=== PATIENT | male | born 1925 | race Caucasian/White ===

== ENCOUNTER 2016-09-27 20:02 | Emergency (ER) | payer OTHER ==
[2016-09-27] MEDS ORDERED: ROCEPHIN IM ONE (21:23)
[2016-09-27] MEDS ORDERED: XYLOCAINE-MPF 1% INJ ONE (21:23)
--- NOTE | 2016-09-27 21:32 | PROVIDER DOCUMENTATION ---
HPI-Male Problem - General Chief Complaint: Urinary Retention Stated Complaint: PASSING BLOOD Time Seen by Provider: 09/27/16 21:22 Source: patient Allergies/Adverse Reactions: Patient Allergies Allergy/AdvReac Type Severity Reaction Status Date / Time Penicillins Allergy Severe Unknown Verified 09/27/16 22:20 morphine Allergy Mild NAUSEA/VOMI Verified 09/27/16 22:20 TING Home Medications: Home Medication List Medication Instructions Recorded Confirmed Last Taken Type Aspirin 81 mg PO DAILY 02/25/15 08/05/16 07/30/16 History 81 Clopidogrel Bisulfate [Plavix] 75 mg PO DAILY 02/25/15 08/05/16 07/30/16 History 75 Ezetimibe [Zetia] 10 mg PO DAILY 03/13/16 08/05/16 08/04/16 17:00 History 10 Levothyroxine [Synthroid] 75 microgm PO DAILY 03/13/16 08/05/16 08/04/16 17:00 History 75 Metoprolol Succinate [Toprol Xl] 100 mg PO DAILY 03/13/16 08/05/16 08/04/16 17: 00 History 100 Olopatadine 0.2% Oph Solution 1 drop BOTH EYES DAILY 03/13/16 08/05/16 08/01/16 History [Pataday 0.2% Oph Solution] 1 Sitagliptin Phos/Metformin HCl 1 each PO BID 03/13/16 08/05/16 08/04/16 17:00 History [Janumet 50-1,000 mg Tablet] 1 ROSUVAstatin [Crestor] 20 mg PO DAILY 06/29/16 08/05/16 08/04/16 17:00 History 20 Fosinopril Sodium 40 mg PO DAILY 07/09/16 08/05/16 08/04/16 17:00 History 40 Multivitamin [Tab-A-Daniel] 1 each PO DAILY 07/09/16 08/05/16 08/04/16 17:00 History 1 Ciprofloxacin HCl [Cipro] 500 mg PO BID #20 tablet 07/12/16 08/05/16 Unknown Rx Hydrocodone/Acetaminophen [[place] 1 - 2 each PO Q4-6H PRN PRN #30 08/05/16 Unknown Rx 7.5-325 Tablet] tablet Ciprofloxacin HCl [Cipro] 500 mg PO BID #10 tablet 09/27/16 Unknown Rx - History of Present Illness-Male Nature of Presenting Problem: Pt is a 89 yom who presents to ER [facility] CC of urinary retention. Pt reports that he has hx of hematuria, BPH, prostate cancer and reports that he was seen x3 days ago for a UTI by his urologist. Pt reports that today he has been unable to fully urinate and he feels as though his bladder is distended. On exam, his bladder is indeed distended and tender. Location of Complaint: reports: suprapubic Radiation: reports: none Quality of Pain: reports: fullness Severity in ED: reports: moderate Onset/Duration: reports: this morning Timing: reports: still present Urinary Symptoms: reports: dribbling, retention Associated Symptoms: denies: constipation, cough, diarrhea, fatigue, fever/ chills, muscle aches, nausea, syncope, vomiting, weakness, trouble walking Review of Systems - Adult - REVIEW OF SYSTEMS - ADULT Constitutional: denies: chills, fever, fatique, night sweats, weight gain, weight loss Eyes: reports: no symptoms reported Ears, Nose, Mouth & Throat: reports: no symptoms reported Cardiovascular: reports: no symptoms reported Respiratory: reports: no symptoms reported Gastrointestinal: denies: abdominal pain, hematemesis, constipation, diarrhea, difficulty swallowing, frequent heartburn, nausea, poor appetite, rectal bleeding, vomiting Genitourinary: reports: hematuria, urinary retention. denies: dysuria, discharge, frequency, flank pain, frequent UTI's, hesitency, incontinence, urgency Musculoskeletal: reports: no symptoms reported Integumentary: reports: no symptoms reported Neurological: reports: no symptoms reported Psychiatric: reports: no symptoms reported Endocrine: reports: no symptoms reported Hematologic/Lymphatic: reports: no symptoms reported Allergic/Immunologic: reports: no symptoms reported All Other Systems: Reviewed and Negative Past History - Adult - PAST MEDICAL HISTORY-ADULT Review of Records: reports: Nursing Assessment Review, Medications Reviewed Cardiovascular: reports: HTN, hyperlipidemia Genitourinary: reports: prostate cancer Neurological: reports: CVA - PRIOR SURGERIES/PROCEDURES Surgical/Procedure History: reports: cardiac stent, orthopedic (extremity), other (carotids; cataract sx bilateral eyes) - IMMUNIZATION STATUS Childhood Immunizations: See Nurse Assessment Flu Vaccine: See Nurse Assessment Physical Exam-General - PHYSICAL EXAM-ADULT Initial Vital Signs Reviewed: Yes - CONSTITUTIONAL General Appearance: appears well, alert, mild distress. negative: no apparent distress, slow to respond, obtunded, combative - NECK Neck: non-tender, full range of motion, supple. negative: C-spine tenderness, limited range of motion, lymphadenopathy - RESPIRATORY Respiratory: chest non-tender, lungs clear, normal breath sounds, no pleuratic chest pain, no respiratory distress, no accessory muscle use. negative: respiratory distress, decreased breath sounds, accessory muscle use, wheezing - CARDIOVASCULAR Cardiovascular: normal peripheral pulses, regular rate, rhythm. negative: bradycardia, tachycardia, irregularly irregular - GASTROINTESTINAL (ABDOMEN) Abdominal Exam: normal bowel sounds, soft, distended (urinary bladder distended) , tenderness (superpubic tender on palpation). negative: non tender, mass - MUSCULOSKELETAL Back Exam: no CVA tenderness, no vertebral tenderness. negative: CVA tenderness , decreased range of motion, muscle spasm, swelling, vertebral tenderness Extremity: normal range of motion, non-tender, normal gait - SKIN Integumentary: normal color, normal turgor, warm/dry. negative: abrasion(s), diaphoresis, erythema, laceration(s), tenderness, warm - NEUROLOGIC Neurologic: grossly normal, no motor/sensory deficits. negative: focal weakness , motor weakness, sensory deficit - PSYCHIATRIC Psych/Mental Status: normal mood/affect, normal thought content, normal thought process, oriented x 3 Progress - PLAN OF CARE/RESULTS Progress/Plan/Lab Results: Vital Signs - 24 hr 09/27/16 20:32 Temperature 98.1 F Pulse Rate 83 Respiratory 20 Rate Blood Pressure 148/83 O2 Sat by Pulse 98 Oximetry Orders Category Date Time Status Thayer Cath Insertion ORDERED Care 09/27/16 21:23 Active Nursing [[facility] [place]. NRSG Communication Order] DIRECTED Care 09/27/16 20:54 Active CBC WITH ELECTRONIC DIFF [HEME] Stat Lab 09/27/16 22:00 Completed COMPREHENSIVE METABOLIC PANEL [CHEM] Stat Lab 09/27/16 22:00 Completed URINE CULTURE [RM] Routine Lab 09/27/16 22:52 Received CefTRIAXONE [Rocephin] Med 09/27/16 21:23 Discontinued 1 gm IM NOW ONE Lidocaine 1% Pf [Xylocaine-Mpf 1%] Med 09/27/16 21:23 Discontinued 5 ml INJ NOW ONE Laboratory Tests 09/27/16 09/27/16 09/27/16 22:00 22:00 22:12 WBC 9.85 RBC 3.45 L Hgb 10.4 L Hct 32.7 L MCV 94.8 MCH 30.1 MCHC 31.8 L RDW Std Deviation 14.9 H Plt Count 244 MPV 10.7 H Immature Gran % (Auto) 0.4 Neut % (Auto) 64.9 Lymph % (Auto) 17.2 L [place] % (Auto) 16.2 H Eos % (Auto) 1.1 Baso % (Auto) 0.2 Immature Gran # (Auto) 0.04 Neut # (Auto) 6.39 Lymph # (Auto) 1.69 [place] # (Auto) 1.60 H Eos # (Auto) 0.11 Baso # (Auto) 0.02 Sodium 138 Potassium 4.5 Chloride 102 Carbon Dioxide 21 L Anion Gap 15 BUN 18 Creatinine 1.1 Estimated GFR/1.73 m2 > 60 BUN/Creatinine Ratio 16 Glucose 98 Calculated Osmolality 278 Calcium 9.2 Total Bilirubin 0.28 AST 27 ALT 17 Alkaline Phosphatase 50 Total Protein 7.0 Albumin 4.2 Globulin 2.8 Albumin/Globulin Ratio 1.5 Urine Source Cancelled Urine Color Cancelled Urine Clarity Urine Turbidity Cancelled Urine pH Cancelled Ur Specific [place] Cancelled Urine Protein Cancelled Ur Glucose (Stick) Cancelled Urine Ketones Ur Ketones (Stick) Cancelled Urine Blood Cancelled Urine Nitrite Cancelled Urine Bilirubin Cancelled Urine Urobilinogen Urobilinogen Dipstick Cancelled Urine Leukocytes Cancelled Urine WBC (Auto) Cancelled Urine RBC (Auto) Cancelled U Epithel Cells (Auto) Cancelled Urine Bacteria (Auto) Cancelled Urine Microscopic RBC Urine WBC Urine Microscopic WBC Ur Epithelial Cells Urine Bacteria Urine Glucose 09/27/16 22:12 WBC RBC Hgb Hct MCV MCH MCHC RDW Std Deviation Plt Count MPV Immature Gran % (Auto) Neut % (Auto) Lymph % (Auto) [place] % (Auto) Eos % (Auto) Baso % (Auto) Immature Gran # (Auto) Neut # (Auto) Lymph # (Auto) [place] # (Auto) Eos # (Auto) Baso # (Auto) Sodium Potassium Chloride Carbon Dioxide Anion Gap BUN Creatinine Estimated GFR/1.73 m2 BUN/Creatinine Ratio Glucose Calculated Osmolality Calcium Total Bilirubin AST ALT Alkaline Phosphatase Total Protein Albumin Globulin Albumin/Globulin Ratio Urine Source CATH Urine Color BROWN Urine Clarity TURBID A Urine Turbidity Urine pH 6.5 [address] Specific [place] 1.017 Urine Protein 100 A Ur Glucose (Stick) Urine Ketones NEGATIVE Ur Ketones (Stick) Urine Blood MODERATE A Urine Nitrite NEGATIVE Urine Bilirubin NEGATIVE Urine Urobilinogen 0.2 Urobilinogen Dipstick Urine Leukocytes Urine WBC (Auto) Urine RBC (Auto) U Epithel Cells (Auto) Urine Bacteria (Auto) Urine Microscopic RBC TNTC A Urine WBC TRACE A Urine Microscopic WBC <10 Ur Epithelial Cells <10 Urine Bacteria NEGATIVE Urine Glucose NEGATIVE Departure - Departure Time of Disposition Order: 23:02 DIAGNOSIS: Hematuria, Urinary retention Disposition: HOME 01 Certified Medical Emergency: Emergent Condition: Stable Additional Instructions: Follow up with Dr. Morales on Friday. ED Follow Up Instructions: You have been treated by a care provider in the Emergency Department. These instructions are being provided to you so you can have an understanding of how to care for yourself upon discharge. Upon discharge from the Emergency Department, you are responsible for making arrangements for follow-up care by a physician of your choice. Take all prescribed medications as directed. Return to the Emergency Department immediately for any new or worsening symptoms. You may call the Physician Referral phone number at [phone] to obtain a list of Physicians who are taking new patients. Prescriptions: Ciprofloxacin HCl [Cipro] 500 mg PO BID #10 tablet Referrals: Burt Walsh Jr, MD [Primary Care Provider] - Gorge Morales MD [STAFF PHYSICIAN] - Attestation - Scribe Verification/Attestation Scribe:: Damian Hood Acting as Scribe for:: Yon Dai Scribe documention review:: This chart was documented by a scribe and accurately reflects the service the provider performed and the decisions made by the provider.
[2016-09-27 22:20] LABS: MANUAL DIFF NEEDED? NO
[2016-09-27 22:32] LABS: URINE SOURCE CATH
[2016-09-27 22:41] LABS: BASO% 0.2 % (0.0-0.8); EOS# 0.11 X1000 (0.0-0.7); EOS% 1.1 % (0.0-10.0); HEMATOCRIT 32.7 % (42.0-52.0); HEMOGLOBIN 10.4 g/dL (14.0-18.0); IMM GRAN# 0.04 X1000 (0.0-0.04); IMM GRAN% 0.4 % (0.0-0.5); LYMPH# 1.69 X1000 (1.2-3.4); LYMPH% 17.2 % (20.5-51.1); MCH 30.1 PG (27-31); MCHC 31.8 g/dL (33-37); MCV 94.8 FL (81-99); MONO% 16.2 % (1.7-9.3); MPV 10.7 FL (7.4-10.4); NEUT% 64.9 % (42.2-75.2); PLT 244 X1000 (130-400); RBC 3.45 XMIL (4.7-6.1)
[2016-09-27 22:44] LABS: AGAP 15; ALBUMIN 4.2 g/dL (3.5-5.0); ALKALINE PHOSPHATASE 50 U/L (32-122); BUN 18 mg/dL (8-22); CALCIUM 9.2 mg/dL (8.8-10.2); CHLORIDE 102 mmol/L (98-107); COSMO 278; GOT 27 U/L (10-34); GPT 17 U/L (10-44); POTASSIUM 4.5 mmol/L (3.5-5.1); SODIUM 138 mmol/L (136-145); TCO2 21 mmol/L (25-35); TOTAL BILIRUBIN 0.28 mg/dL (0.20-1.00)
[2016-09-27 22:50] LABS: BILIRUBIN URINE NEGATIVE (NEGATIVE); CLARITY TURBID (CLEAR); COLOR BROWN; GLUCOSE URINE NEGATIVE (NEGATIVE); SP GRAVITY URINE 1.017; URINE EPITHELIAL CELLS <10 /HPF (<10); URINE RBC TNTC /HPF (<10); URINE WBC <10 /HPF (<10)
[2016-09-27 22:51] LABS: BLOOD URINE MODERATE (NEGATIVE); LEUKOCYTES URINE TRACE (NEGATIVE); NITRITE URINE NEGATIVE (NEGATIVE); PH URINE 6.5; PROTEIN URINE 100 mg/dL (NEGATIVE); URINE CULTURE NEEDED? YES; UROBILINOGEN URINE 0.2 EU/dL (0.2-1.0)
[2016-09-27] MEDS ORDERED: NORCO-7.5 PO ONE (23:51)
[2016-09-28] VITALS: BP 104/72
== END 2016-09-27 23:59 | disposition home or self-care (01) ==
LOC: ED 20:02
DX: R33.9 Retention of urine, unspecified (principal); R31.9 Hematuria, unspecified; N32.89 Other specified disorders of bladder; R10.819 Abdominal tenderness, unspecified site; I10 Essential (primary) hypertension; E78.5 Hyperlipidemia, unspecified; Z79.82 Long term (current) use of aspirin; Z79.899 Other long term (current) drug therapy; Z85.46 Personal history of malignant neoplasm of prostate; Z86.73 Personal history of transient ischemic attack (TIA), and cerebral infarction without residual deficits
CPT/HCPCS: 36415; 51702; 51798; 80053; 81001; 85025; 87088; 96372; J0696

== ENCOUNTER 2016-10-02 08:24 | Inpatient (IN) ==
[2016-10-02] MEDS ORDERED: LR 1,000 ML ONE (09:04)
[2016-10-02 09:30] LABS: HEMATOCRIT 30.7 % (42.0-52.0); HEMOGLOBIN 9.5 g/dL (14.0-18.0); MCH 30.4 PG (27-31); MCHC 30.9 g/dL (33-37); MCV 98.1 FL (81-99); MPV 10.2 FL (7.4-10.4); RBC 3.13 XMIL (4.7-6.1)
[2016-10-02 09:41] LABS: CALCIUM 9.6 mg/dL (8.8-10.2); POTASSIUM 4.6 mmol/L (3.5-5.1)
[2016-10-02] MEDS: LEVAQUIN 500 MG/D5W 100 ML ONE ×2 (10:30→22:16)
[2016-10-02] MEDS ORDERED: NEOSPORIN G.U. IRRIGANT ONE (10:44)
--- NOTE | 2016-10-02 12:02 | EKG Report ---
Test Performed on : 10/02/2016 09:21:59 AM Test Reason : ANESTHESIA PREOP ORDER Blood Pressure : / mmHG Vent. Rate : 070 BPM Atrial Rate : 070 BPM P-R Int : 158 ms QRS Dur : 108 ms QT Int : 410 ms P-R-T Axes : 061 018 026 degrees QTc Int : 442 ms Normal sinus rhythm. Normal ECG When compared with ECG of 13-MAR-2016 12:39, No significant change was found Confirmed by Tre STEPHENS, Tadeo Boyle ([id number]) on 10/02/2016 3:24:07 PM
[2016-10-02] MEDS ORDERED: DIPRIVAN 1% ONE (12:03)
[2016-10-02] MEDS ORDERED: FENTANYL ONE (12:03)
[2016-10-02] MEDS: DEMEROL ONE ×4 (12:43→13:13)
[2016-10-02] MEDS: NORCO-5 ONE ×2 (13:47→15:03)
--- NOTE | 2016-10-02 14:01 | Diag Imaging Result Document ---
PROCEDURE NAME: RETROGRADES 2 OR 3 FILMS - 10/02/2016 BILATERAL URETEROGRAM: COMPARISON: 07/11/2016. FINDINGS: The exam was performed by the patient's urologist. There are some stable, mild cystic outpouchings of the ureters bilaterally, notably in the mid ureters. The renal collecting systems are normal. No hydronephrosis or obstruction. Total fluoroscopy time was 48 seconds. 23 images were obtained. IMPRESSION: No change from prior.
[2016-10-02] MEDS ORDERED: SODIUM CHLORIDE 0.9% 10 ML ONE (14:46)
[2016-10-02] MEDS ORDERED: XYLOCAINE-MPF 2% ONE (14:47)
[2016-10-02] MEDS ORDERED: EPHEDRINE ONE (14:47)
[2016-10-02] MEDS ORDERED: ZOFRAN ONE (14:47)
[2016-10-02] MEDS ORDERED: NORCO-5 ONE (14:51)
[2016-10-02] MEDS ORDERED: ZOFRAN IV ONE (14:58)
[2016-10-02] MEDS ORDERED: LR 500 ML ONE (15:01)
[2016-10-02] MEDS ORDERED: PHENERGAN IV ONE (15:47)
[2016-10-02] MEDS ORDERED: SODIUM CHLORIDE 0.9% INJ ONE (15:47)
[2016-10-02] MEDS: DEMEROL IV ONE ×2 (15:53→17:43)
[2016-10-02] MEDS ORDERED: NS 1,000 ML ONE (16:42)
[2016-10-02] MEDS ORDERED: NS 1,000 ML IV SCH (16:50)
[2016-10-02] MEDS ORDERED: LABETALOL IV ONE ×2 (16:57→17:52)
[2016-10-02] MEDS: LABETALOL IV ONE ×2 (17:23→17:55)
[2016-10-02] MEDS ORDERED: TYLENOL PO PRN (18:03)
[2016-10-02] MEDS ORDERED: LABETALOL IV PRN (18:10)
[2016-10-02] MEDS ORDERED: DILAUDID ONE (18:39)
[2016-10-02] MEDS: ZOFRAN IV PRN (18:48)
--- NOTE | 2016-10-02 19:16 | HISTORY AND PHYSICAL ---
HISTORY OF PRESENT ILLNESS: The patient is an 89-year-old, white male, followed by Dr. Burt Walsh for his primary care. Dr. Morales had operated on the patient earlier this evening as he was having gross hematuria. He biopsied a mass in his urinary bladder and removed a kidney stone inside the bladder and all this under cystoscopic evaluation with bilateral retrogrades. Patient after the operation has had markedly elevated blood pressures in the 200 systolic and has had prominent nausea and vomiting and hard to control pain despite medications to include Demerol. He received some Zofran and Phenergan and also some [place], a small amount. I believe he may have developed the nausea with the Demerol. Dr. Morales has called and asked me if I will admit him to Dr. Walsh' service for better control of his blood pressure. MEDICATIONS: Prior to admission include Cipro. Patient also has been on fosinopril 40 mg daily, last dose yesterday morning. Crestor 20 mg p.o. q.p.m. Toprol-XL 100 mg p.o. daily, last dose this morning. Zetia 10 mg p.o. daily. Synthroid 75 mcg p.o. daily. Janumet one p.o. b.i.d. Pataday 0.2% ophthalmic solution 1 drop each eye daily. Aspirin 81 mg daily and Plavix 75 mg daily, the latter 2 have been held in preparation for the surgery. ALLERGIES: To penicillin and morphine. PAST MEDICAL HISTORY: 1. Hypertension. 2. Coronary artery disease. 3. Peripheral vascular disease. 4. History of aortic valve replacement. I believe this was with a tissue valve in the last year and a half. 5. Hypercholesterolemia. 6. Hypothyroidism. 7. History of transitional cell carcinoma of the bladder. 8. History of prostate cancer. 9. Possible history of stroke per patient record, remote, without significant residual. PAST SURGICAL HISTORY: Is difficult to obtain as patient is currently vomiting. His family member who is with him is not particular aware of his past medical history, but I believe he has had bilateral carotid endarterectomies, orthopedic surgery on 1 of his extremities, bilateral cataract removal, cardiac stent placement. FAMILY HISTORY: Noncontributory. SOCIAL HISTORY: Patient lives in the local area. He quit smoking in 1963. No alcohol use. Patient has been living independent. REVIEW OF SYSTEMS: Unobtainable at this time. PHYSICAL EXAM: Pulse 79, respirations 16, blood pressure 187/67. GENERAL: Frail, elderly white male, currently gagging and not doing well. HEENT: There are cataract changes bilaterally with pupillary dilation on the left which appears chronic. OP: Tongue in the midline. NECK: Mild right carotid bruit. No TMG. No cervical LA or supraclavicular LA. CV: RRR with faint murmur. LUNGS: CTA. ABDOMEN: Soft, no mass or organomegaly. EXTREMITIES: Lower extremities without any calf tenderness or cords. Trace ankle edema bilaterally. NEUROLOGIC: He would squeeze my hand. Follows commands well. See no focal deficits. LAB DATA: Shows white count 8.24, hemoglobin 9.5, hematocrit 30.7, MCV 98.1, platelets 253,000. Sodium 141, potassium 4.6, chloride 104, CO2 26, BUN 29, creatinine 1.3, glucose 105. Urine currently by catheter is fairly clear. It is draining properly. ASSESSMENT: 1. Uncontrolled hypertension. 2. Nausea and vomiting. 3. Raqdgoldl-dq-hftxjen pain following urological surgery which include cystoscopy with retrograde pyelograms including removal of clot, biopsy of the bladder tumor and removal of bladder stone. 4. Coronary artery disease with history of previous stent placement. 5. Hypercholesterolemia. 6. Hypothyroidism. 7. History of aortic valve replacement in the past year and a half. PLAN: At this time of course, we will continue to hold his anticoagulants. We tried some labetalol and that has helped some so will continue that on a p.r.n. basis. Since he did not take his Monopril today I am going to add Vasotec IV while monitoring his renal function closely. He is getting 200 mL normal saline an hour and we will continue that presently while monitoring his urine output and blood pressure. We will add nitroglycerin and paste as well. Give Dilaudid for pain control with Zofran as needed for nausea and vomiting and Dr. Morales will follow the patient with us during the hospitalization.
--- NOTE | 2016-10-02 20:03 | OPERATIVE NOTE ---
PROCEDURE DATE: 10/02/2016 PREOPERATIVE DIAGNOSIS: History of gross hematuria with clot retention, prostate cancer, status post radiation therapy, and low-grade urothelial carcinoma. POSTOPERATIVE DIAGNOSIS: History of gross hematuria with clot retention, prostate cancer, status post radiation therapy, and low-grade urothelial carcinoma. PROCEDURES PERFORMED: 1. Cystoscopic exam. 2. Clot irrigation. 3. Bilateral retrograde ureteropyelograms. 4. Transurethral resection of bladder tumor (about 3 sq cm). 5. Cystolitholapaxy of 2 cm bladder stone. SURGEON: Gorge Morales MD ANESTHESIA: General via laryngeal mask. FINDINGS: Cystoscopic exam: Urethra--greater than 21 Mont[place], without stricture. Prostate-- coapting lateral lobes, very friable veins across the surface of the prostate, length approximately 4 cm. Bladder--normal ureteral orifices bilaterally with grade 3 trabeculations. No papillary lesions seen; however, there was bullous edema, consistent with the indwelling Thayer catheter. He did have an approximate 3 cm area on the lower posterior wall that was consistent with a bladder tumor. This could be radiation change. Left retrograde ureteropyelogram normal, without filling defect. Right retrograde ureteropyelogram normal, without filling defect. Also noted in the bladder was a bladder stone that appeared to be old clot completely covered with stone. Rectal exam reveals a prostate of about 30-40 g, smooth, firm, consistent with previous radiation therapy. INDICATIONS FOR PROCEDURE: This 89-year-old male has a history of prostate cancer that was treated with radiation therapy many years ago. He has had intermittent problems with gross hematuria. His most recent episode was several days ago where he was seen in the emergency room. A Thayer catheter was placed. He also has a history of low-grade noninvasive papillary transitional cell cancer. DESCRIPTION OF PROCEDURE: After informed consent was obtained from the patient and family and him receiving IV antibiotics, he was taken to the main OR cystoscopy room and placed in the supine position. General anesthesia via laryngeal mask was achieved. He was then placed in the low lithotomy position and prepped and draped in the usual sterile fashion for cystoscopic exam. A 21- [place] sheath cystoscope was passed through the patient's urethra and prostate into the bladder with findings noted above. A large amount of clot was irrigated from the bladder and findings are as noted above. The stone was visualized. An 8-[place] cone-tip catheter was then passed through the cystoscope and engaged in the left ureteral orifice. Contrast was injected. The right side was accomplished similarly. Again, no filling defects were seen on either side. The cold cup biopsy forceps were placed and multiple cold cups of the tumor were taken and sent to Pathology. This was about 3 cm in diameter. The Bugbee electrode was placed and hemostasis was achieved. A 1000-micron laser fiber was placed. The laser was set at 8 hertz and 8 morrison and the stone was fragmented again. The outer layer of stone completely covered an old clot. A portion of the outer layer was sent for stone analysis. The rest was irrigated from the bladder. The Bugbee electrode was placed and hemostasis was completed. He tolerated the procedure well. Estimated blood loss was 2 mL. The bladder was left distended and a 20-[place]in Thayer catheter was passed through the patient's urethra and prostate into the bladder without difficulty, and 10 mL sterile water were placed in the Thayer's balloon. He tolerated the procedure well and was taken to the recovery room in good condition.
[2016-10-02] MEDS: VASOTEC IV SCH (21:07)
[2016-10-02] MEDS: NS 1,000 ML IV SCH (21:08)
[2016-10-02] MEDS: DILAUDID IV PRN (21:11)
[2016-10-02] MEDS: HUMULIN R SUBQ SCH (22:16)
[2016-10-03] MEDS: NITROGLYCERIN TOP SCH ×5 (01:12→19:52)
[2016-10-03] MEDS: DILAUDID IV PRN ×2 (01:12→05:35)
[2016-10-03] MEDS: ZOFRAN IV PRN (01:13)
[2016-10-03 05:22] LABS: MANUAL DIFF NEEDED? NO
[2016-10-03 05:42] LABS: BASO% 0.1 % (0.0-0.8); HEMATOCRIT 29.1 % (42.0-52.0); IMM GRAN# 0.05 X1000 (0.0-0.04); IMM GRAN% 0.3 % (0.0-0.5); LYMPH# 1.48 X1000 (1.2-3.4); LYMPH% 7.7 % (20.5-51.1); MCH 29.5 PG (27-31); MCHC 30.9 g/dL (33-37); MCV 95.4 FL (81-99); MONO# 1.78 X1000 (0.11-0.59); MONO% 9.2 % (1.7-9.3); MPV 10.6 FL (7.4-10.4); NEUT% 82.7 % (42.2-75.2); PLT 249 X1000 (130-400); RBC 3.05 XMIL (4.7-6.1)
[2016-10-03 05:56] LABS: CALCIUM 8.1 mg/dL (8.8-10.2); POTASSIUM 5.7 mmol/L (3.5-5.1)
[2016-10-03] MEDS: NS 1,000 ML IV SCH ×3 (06:49→17:11)
[2016-10-03] MEDS: HUMULIN R SUBQ SCH ×4 (06:50→20:29)
--- NOTE | 2016-10-03 09:44 | PROGRESS NOTE ---
DATE: 10/03/2016 SUBJECTIVE: The patient says he feels all right. However, blood pressure has been low. OBJECTIVE: Vital Signs: Blood pressure was 80 systolic and I was called. Apparently the patient had been admitted to me yesterday but just was not placed in the computer. He had a blood pressure of 220 systolic and after his procedure for his bladder tumor, his blood pressure went down. His blood pressure medications have been held and he is now on IV fluids at 200 mL an hour. This is normal saline. HEENT: He is normocephalic. Extraocular movements intact. Pupils equal, round, and reactive to light and accommodation. Throat clear. Lungs: Have a few scattered rales that cleared after coughing. Cardiovascular: Heart is regular rate and rhythm without murmurs, gallops, or friction rubs. Abdomen: Soft. Active bowel sounds. No organomegaly or tenderness. Neurological Examination: Intact grossly. Patient does have a history of coronary artery disease. Denies any chest pains. LABORATORY: Shows a white count that went from 8240 to 19,280. Could have a bacteremia with this. May just be elevated because of the surgical procedure. Sodium 136, potassium 5.7. Creatinine is up to 1.9, BUN 33, which could show some mild dehydration as well. ASSESSMENT: 1. Bladder tumor. 2. Very labile hypertension with very high blood pressures and now hypotension. 3. Coronary artery disease. 4. Peripheral vascular disease. 5. History of aortic valve replacement. 6. Hypercholesterolemia. 7. Hypothyroidism. 8. History transitional cell carcinoma of the bladder. 9. History of prostate cancer. 10. History of cerebrovascular accident, now resolved. 11. Diabetes. PLAN: We will watch his blood pressure very closely. Some of this could also be that because his blood pressure was so high he was given extra blood pressure medicine yesterday to help bring this down, and with that and the procedure, that maybe this was just too much for him. PLAN: We will continue to watch. Follow blood pressure and follow diabetes.
[2016-10-03] MEDS ORDERED: B & O 16A SUPP PR PRN (10:06)
[2016-10-03] MEDS: VASOTEC IV SCH ×2 (11:31→20:29)
[2016-10-03] MEDS: PATADAY 0.2% OPH SOLUTION BOTH EYES SCH (12:48)
[2016-10-03] MEDS ORDERED: NON-FORMULARY MED (Sitagliptin Phos/Metformin Hcl [Janumet 50-1,000 Mg Tablet] 1 EACH) PO SCH (21:00)
[2016-10-03] MEDS ORDERED: CRESTOR PO SCH (21:00)
[2016-10-03] MEDS: CIPRO PO SCH (21:38)
[2016-10-04] MEDS: NORCO-7.5 PO PRN ×2 (01:57→13:10)
[2016-10-04] MEDS: NS 1,000 ML IV SCH ×2 (01:57→06:14)
[2016-10-04] MEDS ORDERED: AYR NASAL SPRAY NAS PRN (02:03)
[2016-10-04 05:10] LABS: MANUAL DIFF NEEDED? NO
[2016-10-04 05:25] LABS: BASO% 0.1 % (0.0-0.8); EOS# 0.05 X1000 (0.0-0.7); EOS% 0.4 % (0.0-10.0); HEMATOCRIT 25.7 % (42.0-52.0); HEMOGLOBIN 7.8 g/dL (14.0-18.0); IMM GRAN# 0.04 X1000 (0.0-0.04); IMM GRAN% 0.3 % (0.0-0.5); LYMPH# 0.88 X1000 (1.2-3.4); LYMPH% 7.4 % (20.5-51.1); MCHC 30.4 g/dL (33-37); MCV 95.5 FL (81-99); MONO# 1.27 X1000 (0.11-0.59); MONO% 10.7 % (1.7-9.3); MPV 10.5 FL (7.4-10.4); NEUT% 81.1 % (42.2-75.2); PLT 195 X1000 (130-400); RBC 2.69 XMIL (4.7-6.1)
[2016-10-04] MEDS: NITROGLYCERIN TOP SCH ×2 (05:45→08:33)
[2016-10-04 05:49] LABS: ALBUMIN 2.6 g/dL (3.5-5.0); CALCIUM 7.9 mg/dL (8.8-10.2); POTASSIUM 4.4 mmol/L (3.5-5.1); TOTAL BILIRUBIN 0.3 mg/dL (0.20-1.00); TOTAL PROTEIN 5.1 g/dL (6.3-8.3)
[2016-10-04] MEDS: HUMULIN R SUBQ SCH ×2 (06:13→11:14)
[2016-10-04] MEDS ORDERED: SYNTHROID PO SCH (07:00)
[2016-10-04] MEDS: CIPRO PO SCH (08:32)
[2016-10-04] MEDS: PATADAY 0.2% OPH SOLUTION BOTH EYES SCH (08:32)
[2016-10-04] MEDS: VASOTEC IV SCH (08:33)
[2016-10-04] MEDS ORDERED: ZETIA PO SCH (09:00)
[2016-10-04] MEDS ORDERED: TOPROL XL PO SCH (09:00)
[2016-10-04] MEDS ORDERED: MONOPRIL PO SCH (09:00)
[2016-10-04] MEDS ORDERED: ASPIRIN PO SCH (09:00)
[2016-10-04 11:31] VITALS: BP 138/49
--- NOTE | 2016-10-05 12:08 | DISCHARGE SUMMARY ---
ADMISSION DATE: 10/02/2016 DISCHARGE DATE: 10/04/2016 FINAL DIAGNOSES: 1. Bladder tumor. 2. Severe hypertension. 3. Hypotension. 4. Adult-onset diabetes mellitus. 5. Difficulty with urination. 6. Hyperlipidemia. 7. Peripheral vascular disease. 8. Coronary artery disease. 9. History of prostate cancer. 10. History of cerebrovascular accident. 11. Patient has also had an aortic valve replacement. CHIEF COMPLAINT: Hypertension. HOSPITAL COURSE: The patient had come in for cystoscopy and removal of a bladder tumor. He has had a history of transitional cell carcinoma of the bladder. He became very hypertensive with a systolic pressure above 200. Urology called and asked for us to admit him. Dr. Moreira was taking calls for me at that time, and saw him and treated him for his hypertension. Blood pressure did come down but then he became hypotensive, as well, and we had to readjust our treatments. He is a little bit hypertensive now, at 138/49, but earlier was 153/67. Patient had a Thayer catheter in and had had it, apparently, for a few days before he came to the hospital. I talked with Dr. Morales, his urologist, about whether we should removed or not and he thought we could, but we should scan his bladder afterwards. However, when we took the Thayer catheter out, he started having discomfort when he tried to urinate and just could not urinate. I am going to put the Thayer catheter back in, and he is to see Dr. Morales on Friday and Dr. Morales can decide how he wants to handle the catheter at that time. We did get the patient up and walking around, and vital signs stayed stable. He was not orthostatic. PHYSICAL EXAMINATION: HEENT: He is normocephalic. EOMs intact. PERRLA. Throat clear. Lungs: Clear to auscultation and percussion, without rhonchi, rales, or wheezes. Heart: Regular rate and rhythm, without murmurs, gallops, or friction rubs. Abdomen: Soft with active bowel sounds. No organomegaly or tenderness. Neurologic: Examination is intact grossly. PLAN: I will see him back in the office on Friday. This is Friday. He will be discharged home on his home regular medications. Please see list.
== END 2016-10-04 14:10 | disposition home or self-care (01) | DRG 989 ==
LOC: OR 08:24 → 3S 20:17
PROVIDERS: ADMIT Emergency Medicine; ATTEND Emergency Medicine
PROC: 0TBB8ZZ Excision of Bladder, Via Natural or Artificial Opening Endoscopic (ICD-10-PCS; principal; 2016-10-02 11:00)
PROC: 0TCB8ZZ Extirpation of Matter from Bladder, Via Natural or Artificial Opening Endoscopic (ICD-10-PCS; 2016-10-02 11:00)
PROC: 3E1K88Z Irrigation of Genitourinary Tract using Irrigating Substance, Via Natural or Artificial Opening Endoscopic (ICD-10-PCS; 2016-10-02 11:00)
PROC: BT141ZZ Fluoroscopy of Kidneys, Ureters and Bladder using Low Osmolar Contrast (ICD-10-PCS; 2016-10-02 11:00)
DX: I10 Essential (primary) hypertension (principal); I95.9 Hypotension, unspecified; I73.9 Peripheral vascular disease, unspecified; E11.9 Type 2 diabetes mellitus without complications; D49.4 Neoplasm of unspecified behavior of bladder; N32.89 Other specified disorders of bladder; E03.9 Hypothyroidism, unspecified; G89.18 Other acute postprocedural pain; N52.9 Male erectile dysfunction, unspecified; N21.0 Calculus in bladder; N40.1 Benign prostatic hyperplasia with lower urinary tract symptoms; I25.10 Atherosclerotic heart disease of native coronary artery without angina pectoris; E78.00 Pure hypercholesterolemia, unspecified; Z79.899 Other long term (current) drug therapy; Z79.82 Long term (current) use of aspirin; Z79.02 Long term (current) use of antithrombotics/antiplatelets; Z85.51 Personal history of malignant neoplasm of bladder; Z85.46 Personal history of malignant neoplasm of prostate; Z86.73 Personal history of transient ischemic attack (TIA), and cerebral infarction without residual deficits; Z87.891 Personal history of nicotine dependence; Z87.11 Personal history of peptic ulcer disease; Z92.3 Personal history of irradiation; Z87.442 Personal history of urinary calculi; Z95.5 Presence of coronary angioplasty implant and graft; Z95.2 Presence of prosthetic heart valve
CPT/HCPCS: 74420; 80048; 80053; 82360; 82948; 85025; 85027; 86850; 86900; 86901; 88300; 88305; 88312; 88313; 93005; 93010; 94761; 96374; 96375; 96376; J1170; J2175; J2405; J2550; J3010; J7030; J7120; Q9966